=== PATIENT | female | born 1955 | race Two or more races ===

== ENCOUNTER 2023-12-31 12:31 | Inpatient (IN) | payer MEDICARE ==
[~2023-12-31] VITALS: Ht 160 cm; Wt 63.9 kg
[2023-12-31 13:29] LABS: BASOPHILS % (AUTO) 0.5 % (0.0-2.0); HEMOGLOBIN 13.5 g/dL (12.0-16.0); LYMPHOCYTES # (AUTO) 1.7 K/uL (1.0-4.8); LYMPHOCYTES % (AUTO) 26.6 % (22.0-44.0); MEAN CORPUSCULAR HEMOGLOBIN 33.3 pg (26.0-34.0); MEAN CORPUSCULAR HGB CONC 33.7 G/dL (31.0-37.0); MEAN CORPUSCULAR VOLUME 99 fL (80-100); MONOCYTES # (AUTO) 0.4 K/uL (0.1-1.0); MONOCYTES % (AUTO) 6.7 % (2.0-9.0); NEUTROPHILS % (AUTO) 64.2 % (40.0-70.0); PLATELET COUNT (AUTO) 191 K/uL (150-450); RED BLOOD CELL COUNT(AUTO) 4.05 MIL/uL (4.00-5.20); RED CELL DISTRIBUTION WIDTH 12.2 % (11.5-14.5); WHITE BLOOD COUNT (AUTO) 6.2 K/uL (4.5-11.0)
[2023-12-31 13:40] LABS: ANION GAP 5 mmol/L (8-16); CARBON DIOXIDE 30 mmol/L (22-29); CHLORIDE 104 mmol/L (98-107); GLOMERULAR FILTR. RATE CALC > 60 mL/min (>60); GLUCOSE,RANDOM 107 mg/dL (70-110); SODIUM SERUM 139 mmol/L (136-145); UREA NITROGEN, BLOOD 12 mg/dL (7-18)
[2023-12-31 13:55] LABS: TROPONIN I-HIGH SENSITIVITY 9 ng/L (<51)
[2023-12-31] MEDS: DILTIAZEM HCL 5 MG/ML 5 ML VIAL IVP ONE ×2 (15:55→18:08)
[2023-12-31] MEDS: DOCUSATE SODIUM 100 MG CAPSULE PO SCH (21:00)
[2023-12-31] MEDS ORDERED: ONDANSETRON HCL 4 MG/2 ML VIAL IVP PRN (21:00)
[2023-12-31] MEDS ORDERED: AMIODARONE HCL 50 MG/ML 3 ML VIAL IVP ONE (21:00)
[2023-12-31] MEDS ORDERED: AMIODARONE HCL 360 MG in DEXTROSE 5%-WATER 242.8 ML IV ONE (21:00)
[2023-12-31] MEDS: DOCUSATE SODIUM 100 MG CAPSULE PO ONE (22:15)
[2023-12-31] MEDS ORDERED: [UNRECOGNIZED DRUG - REMARK] AU (22:25)
[2023-12-31] MEDS ORDERED: APIX5TAB PO (22:25)
[2023-12-31 22:30] VITALS: BP 119/71; PULSE 120; RESP 18; TEMP 98; O2SAT 99
[2023-12-31] MEDS ORDERED: HEPARIN SODIUM,PORCINE 5,000 UNITS/ML VIAL IVP PRN ×2 (22:30)
[2023-12-31 23:15] LABS: BASOPHILS % (AUTO) 0.3 % (0.0-2.0); EOSINOPHILS % (AUTO) 2.5 % (1.0-6.0); HEMATOCRIT 38.3 % (36-46); HEMOGLOBIN 12.8 g/dL (12.0-16.0); LYMPHOCYTES # (AUTO) 1.8 K/uL (1.0-4.8); LYMPHOCYTES % (AUTO) 28.1 % (22.0-44.0); MEAN CORPUSCULAR HEMOGLOBIN 33.1 pg (26.0-34.0); MEAN CORPUSCULAR HGB CONC 33.3 G/dL (31.0-37.0); MEAN CORPUSCULAR VOLUME 99 fL (80-100); MONOCYTES # (AUTO) 0.5 K/uL (0.1-1.0); MONOCYTES % (AUTO) 7.2 % (2.0-9.0); NEUTROPHILS % (AUTO) 61.9 % (40.0-70.0); PLATELET COUNT (AUTO) 187 K/uL (150-450); RED BLOOD CELL COUNT(AUTO) 3.86 MIL/uL (4.00-5.20); RED CELL DISTRIBUTION WIDTH 12.4 % (11.5-14.5); WHITE BLOOD COUNT (AUTO) 6.5 K/uL (4.5-11.0)
[2023-12-31] MEDS ORDERED: SODIUM CHLORIDE 0.9% 100 ML ONE (23:17)
[2023-12-31] MEDS ORDERED: IOHEXOL 350 MG/ML 100 ML VIAL ONE (23:17)
[2023-12-31 23:33] LABS: TROPONIN I-HIGH SENSITIVITY 10 ng/L (<51)
[2023-12-31] MEDS: ACETAMINOPHEN 325 MG TABLET PO PRN (23:37)
[2024-01-01] MEDS ORDERED: HEPARIN SODIUM,PORCINE 5,000 UNITS/ML VIAL SQ SCH
[2024-01-01 01:00] VITALS: BP 95/32; PULSE 130; RESP 19; TEMP 97.9; O2SAT 96
[2024-01-01] MEDS ORDERED: SODIUM CHLORIDE 0.9% 500 ML IV ONE (01:18)
[2024-01-01] MEDS: AMIODARONE HCL 150 MG in DEXTROSE 5%-WATER 97 ML IV ONE (01:38)
[2024-01-01] MEDS: HEPARIN SODIUM,PORCINE 5,000 UNITS/ML VIAL IVP ONE (01:40)
[2024-01-01] MEDS: HEPARIN SODIUM 25000 UNITS/D5W 250 ML IV PRN (02:00)
[2024-01-01] MEDS: AMIODARONE HCL 360 MG in DEXTROSE 5%-WATER 242.8 ML IV ONE (02:05)
[2024-01-01] MEDS ORDERED: AMIODARONE HCL 540 MG in DEXTROSE 5%-WATER 239.2 ML IV ONE (03:00)
[2024-01-01 05:30] VITALS: BP 101/57; PULSE 126; RESP 18; TEMP 98.3; O2SAT 95
[2024-01-01 06:48] LABS: BASOPHILS % (AUTO) 0.3 % (0.0-2.0); EOSINOPHILS % (AUTO) 3.1 % (1.0-6.0); HEMATOCRIT 37.7 % (36-46); HEMOGLOBIN 12.8 g/dL (12.0-16.0); LYMPHOCYTES # (AUTO) 1.9 K/uL (1.0-4.8); LYMPHOCYTES % (AUTO) 32.5 % (22.0-44.0); MEAN CORPUSCULAR HEMOGLOBIN 33.4 pg (26.0-34.0); MEAN CORPUSCULAR HGB CONC 33.8 G/dL (31.0-37.0); MEAN CORPUSCULAR VOLUME 99 fL (80-100); MONOCYTES # (AUTO) 0.4 K/uL (0.1-1.0); MONOCYTES % (AUTO) 6.8 % (2.0-9.0); NEUTROPHILS # (AUTO) 3.4 K/uL (1.8-7.7); NEUTROPHILS % (AUTO) 57.3 % (40.0-70.0); PLATELET COUNT (AUTO) 189 K/uL (150-450); RED BLOOD CELL COUNT(AUTO) 3.82 MIL/uL (4.00-5.20); RED CELL DISTRIBUTION WIDTH 12.3 % (11.5-14.5); WHITE BLOOD COUNT (AUTO) 5.9 K/uL (4.5-11.0)
[2024-01-01 06:59] LABS: ANION GAP 8 mmol/L (8-16); CALCIUM, TOTAL 8.3 mg/dL (8.8-10.5); CARBON DIOXIDE 26 mmol/L (22-29); CHLORIDE 104 mmol/L (98-107); CREATININE 0.52 mg/dL (0.60-1.30); GLOMERULAR FILTR. RATE CALC > 60 mL/min (>60); GLUCOSE,RANDOM 117 mg/dL (70-110); POTASSIUM 3.8 mmol/L (3.5-5.1); SODIUM SERUM 138 mmol/L (136-145); UREA NITROGEN, BLOOD 8 mg/dL (7-18)
[2024-01-01] MEDS: AMIODARONE HCL 540 MG in DEXTROSE 5%-WATER 239.2 ML IV ONE (08:48)
[2024-01-01 08:49] VITALS: BP 102/62; PULSE 79; RESP 19; TEMP 98; O2SAT 98
[2024-01-01] MEDS ORDERED: SODIUM CHLORIDE 0.9% 250 ML IV ONE (09:00)
[2024-01-01] MEDS: PIPERACILLIN/TAZO 3.375 GM/D5W 50 ML IV SCH (09:10)
[2024-01-01] MEDS: SODIUM PHOSPHATE,MONO-DIBASIC 133 ML ENEMA PR ONE (12:08)
[2024-01-01 12:15] VITALS: BP 101/73; PULSE 70; RESP 18; TEMP 98.1; O2SAT 97
[2024-01-01] MEDS: METOPROLOL SUCCINATE 50 MG ER TABLET PO SCH (13:10)
[2024-01-01 16:04] VITALS: BP 112/74; PULSE 74; RESP 19; TEMP 98; O2SAT 98
[2024-01-01 20:18] VITALS: BP 126/76; PULSE 66; RESP 20; TEMP 98.3; O2SAT 98
[2024-01-01] MEDS: APIXABAN 5 MG TABLET PO SCH (20:49)
[2024-01-01] MEDS ORDERED: AMIODARONE HCL 750 MG in DEXTROSE 5%-WATER 485 ML IV SCH (21:00)
[2024-01-02] VITALS (7 sets, daily range): BP systolic 97–123; BP diastolic 50–76; PULSE 57–67; RESP 17–19; TEMP 98–98.2; O2SAT 93–97
[2024-01-02] MEDS ORDERED: AMIODARONE HCL 750 MG in DEXTROSE 5%-WATER 485 ML IV SCH (03:00)
[2024-01-02 06:46] LABS: ANION GAP 8 mmol/L (8-16); BASOPHILS % (AUTO) 0.2 % (0.0-2.0); CALCIUM, TOTAL 8.3 mg/dL (8.8-10.5); CARBON DIOXIDE 26 mmol/L (22-29); CHLORIDE 105 mmol/L (98-107); CREATININE 0.58 mg/dL (0.60-1.30); GLOMERULAR FILTR. RATE CALC > 60 mL/min (>60); GLUCOSE,RANDOM 99 mg/dL (70-110); HEMATOCRIT 34.5 % (36-46); HEMOGLOBIN 11.8 g/dL (12.0-16.0); LYMPHOCYTES # (AUTO) 1.5 K/uL (1.0-4.8); MEAN CORPUSCULAR HEMOGLOBIN 33.8 pg (26.0-34.0); MEAN CORPUSCULAR HGB CONC 34.2 G/dL (31.0-37.0); MEAN CORPUSCULAR VOLUME 99 fL (80-100); MONOCYTES # (AUTO) 0.5 K/uL (0.1-1.0); NEUTROPHILS # (AUTO) 4.2 K/uL (1.8-7.7); NEUTROPHILS % (AUTO) 65.8 % (40.0-70.0); PLATELET COUNT (AUTO) 182 K/uL (150-450); POTASSIUM 3.9 mmol/L (3.5-5.1); RED CELL DISTRIBUTION WIDTH 12.5 % (11.5-14.5); SODIUM SERUM 139 mmol/L (136-145); UREA NITROGEN, BLOOD 15 mg/dL (7-18); WHITE BLOOD COUNT (AUTO) 6.4 K/uL (4.5-11.0)
[2024-01-02] MEDS ORDERED: SODIUM CHLORIDE 3% 15 ML NEB SOLUTION NEB ONE (12:56)
[2024-01-02] MEDS ORDERED: SODIUM CHLORIDE 0.9% 250 ML IV ONE (15:34)
[2024-01-03] VITALS (8 sets, daily range): BP systolic 105–126; BP diastolic 55–86; PULSE 52–123; RESP 16–19; TEMP 97.7–98.5; O2SAT 94–98
[2024-01-03 05:08] LABS: HIV 1-2 SCREEN 4TH GEN W/RFLX Non Reactive (Non Reactive)
[2024-01-03 12:34] LABS: MTB PCR w/Rif. Resistance-SPUT NOT DETECTED (Not Detectd)
[2024-01-04 01:21] VITALS: BP 132/86; PULSE 104; RESP 18; TEMP 98.1; O2SAT 98
[2024-01-04 06:23] VITALS: BP 122/84; PULSE 96; RESP 18; TEMP 98.5; O2SAT 98
[2024-01-04] MEDS: METOPROLOL SUCCINATE 50 MG ER TABLET PO SCH (08:34)
[2024-01-04 08:40] VITALS: BP 97/55; PULSE 53; RESP 18; TEMP 98; O2SAT 98
[2024-01-04 10:00] LABS: MTB PCR w/Rif. Resistance-SPUT NOT DETECTED (Not Detectd)
[2024-01-04 12:03] VITALS: BP 120/60; PULSE 58; RESP 18; TEMP 98.5; O2SAT 97
[2024-01-04 17:47] LABS: GLUCOMETER DEV NAME(LOC) 5S.1C; GLUCOSE,POINT OF CARE 133 MG/DL (70-110)
[2024-01-04 19:38] VITALS: BP 99/59; PULSE 62; RESP 16; TEMP 98; O2SAT 97
[2024-01-04] MEDS: METOPROLOL TARTRATE 25 MG TABLET PO SCH (20:17)
[2024-01-05 00:34] VITALS: BP 98/45; PULSE 68; RESP 16; TEMP 98.1; O2SAT 97
[2024-01-05 04:37] VITALS: BP 93/43; PULSE 53; RESP 17; TEMP 98.2; O2SAT 97
[2024-01-05 07:14] LABS: BASOPHILS % (AUTO) 0.6 % (0.0-2.0); EOSINOPHILS % (AUTO) 4.1 % (1.0-6.0); HEMATOCRIT 32.7 % (36-46); HEMOGLOBIN 11.3 g/dL (12.0-16.0); LYMPHOCYTES # (AUTO) 1.5 K/uL (1.0-4.8); LYMPHOCYTES % (AUTO) 33.5 % (22.0-44.0); MEAN CORPUSCULAR HEMOGLOBIN 34.5 pg (26.0-34.0); MEAN CORPUSCULAR HGB CONC 34.4 G/dL (31.0-37.0); MEAN CORPUSCULAR VOLUME 100 fL (80-100); MONOCYTES # (AUTO) 0.4 K/uL (0.1-1.0); NEUTROPHILS # (AUTO) 2.4 K/uL (1.8-7.7); NEUTROPHILS % (AUTO) 53.8 % (40.0-70.0); PLATELET COUNT (AUTO) 175 K/uL (150-450); RED BLOOD CELL COUNT(AUTO) 3.27 MIL/uL (4.00-5.20); RED CELL DISTRIBUTION WIDTH 12.8 % (11.5-14.5); WHITE BLOOD COUNT (AUTO) 4.5 K/uL (4.5-11.0)
[2024-01-05 07:23] LABS: ANION GAP 5 mmol/L (8-16); CALCIUM, TOTAL 8.2 mg/dL (8.8-10.5); CARBON DIOXIDE 28 mmol/L (22-29); CHLORIDE 106 mmol/L (98-107); CREATININE 0.72 mg/dL (0.60-1.30); GLOMERULAR FILTR. RATE CALC > 60 mL/min (>60); GLUCOSE,RANDOM 88 mg/dL (70-110); SODIUM SERUM 139 mmol/L (136-145); UREA NITROGEN, BLOOD 10 mg/dL (7-18)
[2024-01-05 08:00] VITALS: BP 112/72; PULSE 59; RESP 18; TEMP 98.1; O2SAT 97
[2024-01-05] MEDS: RINGERS SOLUTION,LACTATED 250 ML IV ONE (09:00)
[2024-01-05 09:41] LABS: ALANINE AMINOTRANSFERASE 93 U/L (12-78); ALBUMIN 2.7 g/dL (3.4-5.0); ALKALINE PHOSPHATASE 78 U/L (46-116); ASPARTATE AMINOTRANSFERASE 30 U/L (15-37); BILIRUBIN,TOTAL 0.7 mg/dL (0.1-1.0); TOTAL PROTEIN, SERUM 5.8 g/dL (6.4-8.2)
[2024-01-05 12:19] VITALS: BP 102/68; PULSE 58; RESP 18; TEMP 98; O2SAT 98
[2024-01-05 13:06] LABS: QUANTIFERON+, Nil Value 0.05 IU/mL; QUANTIFERON+,Mitogen Value 6.59 IU/mL; QUANTIFERON+,TB2 Antigen Value 0.58 IU/mL; QUANTIFERON, TB GOLD PLUS Positive (Negative)
[2024-01-05] MEDS: METOPROLOL TARTRATE 25 MG TABLET PO SCH (21:00)
[2024-01-05 21:04] VITALS: BP 125/76; PULSE 60; RESP 18; TEMP 98; O2SAT 97
[2024-01-06 04:00] VITALS: BP 110/75; PULSE 59; RESP 18; TEMP 98; O2SAT 98
[2024-01-06 09:00] VITALS: BP 124/70; PULSE 101; RESP 18; TEMP 98.3; O2SAT 98
[2024-01-06] MEDS: METOPROLOL TARTRATE 25 MG TABLET PO ONE (14:07)
[2024-01-06 14:59] VITALS: BP 106/70; PULSE 58; RESP 18; TEMP 97.6; O2SAT 100
[2024-01-06 16:00] VITALS: BP 131/82; PULSE 121; RESP 18; TEMP 97.8; O2SAT 97
[2024-01-06] MEDS: AMIODARONE HCL 150 MG in DEXTROSE 5%-WATER 97 ML IV ONE (18:42)
[2024-01-06] MEDS: AMIODARONE HCL 360 MG in DEXTROSE 5%-WATER 242.8 ML IV ONE (18:42)
[2024-01-06 21:30] VITALS: BP 124/74; PULSE 125; RESP 19; TEMP 97.8; O2SAT 97
[2024-01-07] VITALS (7 sets, daily range): BP systolic 100–120; BP diastolic 52–76; PULSE 51–61; RESP 17–18; TEMP 97.3–98.2; O2SAT 94–100
[2024-01-07] MEDS: AMIODARONE HCL 540 MG in DEXTROSE 5%-WATER 239.2 ML IV ONE (00:27)
[2024-01-07] MEDS: AMIODARONE HCL 750 MG in DEXTROSE 5%-WATER 485 ML IV SCH (17:45)
[2024-01-07] MEDS: AMIODARONE HCL 200 MG TABLET PO SCH (20:40)
[2024-01-08 04:50] VITALS: BP 111/70; PULSE 70; RESP 18; TEMP 97.9; O2SAT 99
[2024-01-08 07:45] VITALS: BP 108/58; PULSE 59; RESP 18; TEMP 98.2; O2SAT 93
[2024-01-08] MEDS: DIGOXIN 250 MCG/ML 2 ML AMP IVP ONE (13:27)
[2024-01-08] MEDS ORDERED: APIX5TAB PO (14:49)
[2024-01-08] MEDS ORDERED: AMOX-457 PO (14:49)
[2024-01-08] MEDS ORDERED: AMIO200 PO (14:49)
[2024-01-08 17:06] LABS: COCCI IGG TITER COMP.FIX-KERN <1:2; COCCIOIDES AB IGG (ID)-KERN Non Reactive; COCCIOIDES AB IGM (ID)-KERN Non Reactive
== END 2024-01-08 15:40 | disposition home or self-care (01) | DRG 177 ==
LOC: EMS 12:31 → EDH 20:56 → 5S 22:05
PROVIDERS: ADMIT Internal Medicine; ATTEND Internal Medicine
DX: J15.69 Pneumonia due to other Gram-negative bacteria (principal); I50.33 Acute on chronic diastolic (congestive) heart failure; J47.0 Bronchiectasis with acute lower respiratory infection; J47.1 Bronchiectasis with (acute) exacerbation; J98.11 Atelectasis; I48.0 Paroxysmal atrial fibrillation; E78.5 Hyperlipidemia, unspecified; R00.1 Bradycardia, unspecified; Z85.3 Personal history of malignant neoplasm of breast; Z79.899 Other long term (current) drug therapy; Z82.3 Family history of stroke; Z63.4 Disappearance and death of family member; Z86.11 Personal history of tuberculosis; Z79.01 Long term (current) use of anticoagulants
CPT/HCPCS: 71045; 71275; 80048; 80076; 82962; 83735; 83880; 84443; 84484; 85025; 85730; 86171; 86480; 87015; 87206; 87389; 87556; 93005; 93306; 94640; 99291; J0282; J1160; J1644; J2543; J3490; J7040; J7050; J7060; 36415-L1; 36415-TC

== ENCOUNTER → 2024-12-31 | Outpatient (CLI) | payer MEDICARE ==
[~2024-12-31] VITALS: Ht 152.4 cm; Wt 58.9 kg
[~2024-12-31] MED LIST: AMIO200T74 PO; AMOX-457 PO; APIX5TAB PO; OMEG-102 PO; ROSU20TA98 PO; [UNRECOGNIZED DRUG - REMARK] AU
[2024-12-31 10:32] VITALS: BP 129/58; PULSE 58; RESP 17; TEMP 97.7; O2SAT 97
== END | disposition home or self-care (01) ==
LOC: SRCNTR 10:16
PROVIDERS: ATTEND Internal Medicine Pulmonary Disease
DX: I48.91 Unspecified atrial fibrillation (principal); I34.81 Nonrheumatic mitral (valve) annulus calcification; Z79.899 Other long term (current) drug therapy